=== PATIENT | male | born 1980 | race Caucasian/White ===

== ENCOUNTER 2018-02-09 17:20 | Inpatient (IN) | payer OTHER ==
[2018-02-09 23:11] VITALS: BMI 33.7
--- NOTE | 2018-02-10 00:57 | HP ---
COWS - Scale Resting Pulse: 0= OR 80 or Below Sweatin=Flushed/Facial Moisture Restless Observation: 3= Extraneous Movement Pupil Size: 0= Normal to Room Light Bone or Joint Aches: 0= None Runny Nose/ Eye Tearin= Runny Nose/Eyes GI Upset > 30mins: 0= None Tremor Observation: 2= Slight Tremor Visible Yawning Observation: 1= 1-2x During Session Anxiety or Irritability: 2=Irritable/Anxious Goose Flesh Skin: 3=Piloerection COWS Score: 15 CIWA Score - CIWA Score Nausea/Vomitin-No Nausea/No Vomiting Muscle Tremors: 3 Anxiety: 3 Agitation: 4-Moderately Restless Paroxysmal Sweats: No Perspiration Orientation: 0-Oriented Tacttile Disturbances: 2-Mild Itch/Numbness/Burn Auditory Disturbances: 0-None Visual Disturbances: 0-None Headache: 0-None Present CIWA-Ar Total Score: 12 Admission ROS [facility] - HPI Chief Complaint: c/o withdrawal sx's. seeking detox txment Allergies/Adverse Reactions: Allergies Allergy/AdvReac Type Severity Reaction Status Date / Time No Known Allergies Allergy Verified 02/10/18 00:28 History of Present Illness: 37 Y.O. MALE WITH POLY SUBSTANCE ABUSE HERE FOR DETOX FROM HEROIN. UTOX + MTD- CLIENT DENIES USE OR PROGRAM. UTOX ALSO+ BENZO REPORTS USING DAILY FOR THE PAST 2 WEEKS AVERAGING 8 MG DAILY. PREVIOUS TO THAT IT WAS ATLEAST 2X WEEK. REFERRED BY A FRIEND. DENIES ANY SIGNIFICANT CLEAN TIME. C/O WITHDRAWAL SX'S SEE CIWA/ COWS. DENIES SOB,C.P, SEIZURE D/O, DRUG OVERDOSE, PAST/PRESENT SI/HI PMHX: DENIES PSYCH: DENIES Exam Limitations: No Limitations - Ebola screening Have you traveled outside of the country in the last 21 days: No Have you had contact with anyone from an Ebola affected area: No Have you been sick,other than usual withdrawal symptoms: No Do you have a fever: No - Review of Systems Constitutional: Chills, Loss of Appetite, Malaise, Night Sweats, Changes in sleep EENT: reports: No Symptoms Reported Respiratory: reports: No Symptoms reported Cardiac: reports: No Symptoms Reported GI: reports: No Symptoms Reported : reports: No Symptoms Reported Musculoskeletal: reports: No Symptoms Reported Integumentary: reports: No Symptoms Reported Neuro: reports: No Symptoms reported Endocrine: reports: No Symptoms Reported Hematology: reports: No Symptoms Reported Psychiatric: reports: Anxious Other Systems: Reviewed and Negative Patient History - Patient Medical History Hx Anemia: No Hx Asthma: No Hx Chronic Obstructive Pulmonary Disease (COPD): No Hx Cancer: No Hx Cardiac Disorders: No Hx Congestive Heart Failure: No Hx Hypertension: No Hx Hypercholesterolemia: No Hx Pacemaker: No HX Cerebrovascular Accident: No Hx Seizures: No Hx Diabetes: No Hx Gastrointestinal Disorders: No Hx Liver Disease: No Hx Genitourinary Disorders: No Hx Sexually Transmitted Disorders: No Hx Renal Disease (ESRD): No Hx Thyroid Disease: No Hx Human Immunodeficiency Virus (HIV): No Hx Hepatitis C: No Hx Depression: No Hx Suicide Attempt: No Hx Bipolar Disorder: No Hx Schizophrenia: No Other Medical History: DENIES - Patient Surgical History Past Surgical History: No - PPD History Previous Implant?: Yes Documented Results: Negative w/o proof Implanted On Prior [facility] Admission?: No PPD to be Administered?: Yes - Smoking Cessation Smoking history: Current every day smoker Aproximately how many cigarettes per day: 20 Cigars Per Day: 0 Hx Chewing Tobacco Use: No Initiated information on smoking cessation: Yes 'Breaking Loose' booklet given: 02/10/18 - Substance & Tx. History Hx Alcohol Use: No Hx Substance Use: Yes Substance Use Type: Heroin, Opiates (OXY), Tranquilizers (XANAX) Hx Substance Use Treatment: No - Substances Abused Heroin Route: SNIFF Frequency: Daily Amount used: 20 BAGS Age of first use: 22 Date of Last Use: 02/10/18 Alprazolam (Xanax) Route: Oral Frequency: Daily Amount used: 4 STICKS Age of first use: 36 Date of Last Use: 02/09/18 Family Disease History - Family Disease History Family Disease History: Other: Grandparent (ALCOHOLIC) Admission Physical Exam [facility] - Vital Signs Vital Signs: Vital Signs - 24 hr 02/09/18 02/10/18 22:57 00:18 Temperature 97.3 F L 97.3 F L Pulse Rate 73 73 Respiratory 20 18 Rate Blood Pressure 142/79 142/79 - Physical General Appearance: Yes: Appropriately Dressed, Mild Distress, Tremorous (FELT) , Anxious, Other ([place]) HEENTM: Yes: EOMI, Normal ENT Inspection, Normocephalic, Normal Voice, RODRIGO, Pharynx Normal, Nasal Congestion Respiratory: Yes: Chest Non-Tender, Lungs Clear, Normal Breath Sounds, No Respiratory Distress, No Accessory Muscle Use Neck: Yes: No masses,lesions,Nodules, Supple, Trachea in good position Breast: Yes: Breast Exam Deferred Cardiology: Yes: Regular Rhythm, Regular Rate, S1, S2 Abdominal: Yes: Non Tender, Soft, Protuberent, Hernia Genitourinary: Yes: Other (NO C/O) Back: Yes: Normal Inspection Musculoskeletal: Yes: full range of Motion, Gait Steady Extremities: Yes: Normal Capillary Refill, Normal Range of Motion, Non-Tender, Tremors (FELT) Neurological: Yes: Fully Oriented, Alert, Motor Strength 5/5 Integumentary: Yes: Dry, Warm Lymphatic: Yes: Within Normal Limits - Diagnostic (1) Opioid dependence with withdrawal Current Visit: Yes Status: Acute (2) Sedative, hypnotic or anxiolytic dependence with withdrawal, uncomplicated Current Visit: Yes Status: Acute (3) Nicotine dependence Current Visit: Yes Status: Acute Qualifiers: Nicotine product type: cigarettes Substance use status: uncomplicated Qualified Code(s): F17.210 - Nicotine dependence, cigarettes, uncomplicated (4) Dry mucous membranes Current Visit: Yes Status: Acute (5) At risk for dehydration due to poor fluid intake Current Visit: Yes Status: Acute (6) Substance-induced sleep disorder Current Visit: Yes Status: Suspected Cleared for Admission [facility] - Detox or Rehab [facility] Level of Care: Medically Managed Detox Regimen/Protocol: Methadone/Valium Claeared for Rehab Admission: No [facility] Breath Alcohol Content Breath Alcohol Content: 0 Urine Drug Screen - Results Drug Screen Negative: No Urine Drug Screen Results: OPI-Opiates, BZO-Benzodiazepines, MTD-Methadone, OXY- Oxycodone
[2018-02-10] MEDS ORDERED: MAGNESIUM CITRATE 300 ML BOTTLE PO PRN (01:07)
[2018-02-10] MEDS ORDERED: MAG HYDROX/AL HYDROX/SIMETH 30 ML UNIT-DOSE CUP PO PRN (01:07)
[2018-02-10] MEDS ORDERED: METHADONE HCL 10 MG TABLET (FOR DETOX USE ONLY) PO ONE ×3 (01:07→23:00)
[2018-02-10] MEDS ORDERED: MENTHOL/PHENOL 1 EACH UD MM PRN (01:07)
[2018-02-10] MEDS ORDERED: diazePAM 5 MG TABLET PO PRN (01:07)
[2018-02-10] MEDS ORDERED: ACETAMINOPHEN 325 MG TABLET (FP) PO PRN (01:07)
[2018-02-10] MEDS ORDERED: NICOTINE POLACRILEX 2 MG GUM BUC PRN (01:07)
[2018-02-10] MEDS ORDERED: diazePAM 5 MG TABLET PO ONE (01:07)
[2018-02-10] MEDS ORDERED: MAGNESIUM HYDROX 2400MG/30ML ORAL SUSPENSION 30 ML CUP PO PRN (01:07)
[2018-02-10] MEDS ORDERED: guaiFENesin/D-METHORPHAN HB 10 ML UNIT-DOSE CUPS PO PRN (01:07)
[2018-02-10] MEDS ORDERED: LOPERAMIDE HCL 2 MG CAPSULE PO PRN (01:07)
[2018-02-10] MEDS ORDERED: P-EPHED 60MG/TRIPROLIDI 2.5MG TABLET PO PRN (01:07)
[2018-02-10] MEDS ORDERED: IBUPROFEN 400 MG TABLET (FP) PO PRN (01:07)
[2018-02-10] MEDS ORDERED: diazePAM 5 MG TABLET PO SCH (06:00)
[2018-02-10] MEDS ORDERED: PRENATAL VITAMINS W/ FOLIC ACID TABLET (FP) PO SCH (10:00)
[2018-02-10] MEDS ORDERED: NICOTINE 14 MG/24 HOURS TOPICAL PATCH TD SCH (10:00)
[2018-02-10 10:20] VITALS: BP 125/81; PULSE 69; TEMP 98.2
[2018-02-10 10:53] LABS: ALBUMIN 3.3 g/dl (3.4-5.0); ANION GAP 8 MMOL/L (8-16); BLOOD UREA NITROGEN 10 mg/dL (7-18); CALCIUM 8.7 mg/dL (8.5-10.1); CHLORIDE 103 mmol/L (98-107); CO2 30 mmol/L (21-32); GLUCOSE,RANDOM 82 mg/dL (74-106); POTASSIUM 3.9 mmol/L (3.5-5.1); SODIUM 141 mmol/L (136-145)
[2018-02-10 10:56] LABS: ALK PHOS 80 U/L (45-117); BILIRUBIN,TOTAL 0.6 mg/dL (0.2-1.0); CREATININE 0.8 mg/dL (0.7-1.3); SGOT/AST 43 U/L (15-37); SGPT/ALT 79 U/L (12-78)
[2018-02-10 11:46] LABS: HEMATOCRIT 36.2 % (35.4-49); HEMOGLOBIN 11.7 GM/dL (11.7-16.9); MCH 29.7 pg (25.7-33.7); MCHC 32.4 g/dl (32.0-35.9); MEAN CELL VOLUME 91.6 fl (80-96); MEAN PLT VOLUME 9.2 fl (7.5-11.1); PLATELET COUNT 324 K/MM3 (134-434); RBC 3.95 M/mm3 (4.00-5.60); RDW 13.5 % (11.9-15.9); WHITE BLOOD COUNT 10.8 K/mm3 (4.0-10.0)
--- NOTE | 2018-02-10 12:31 | DS ---
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 PT REPORTS HE HAS NO PMD AND DOES NOT NEED MEDICAL MANAGEMENT-"I HAVE NO MEDICAL PROBLEM". BUT SAYS HE STAYS IN [place], [place]. ENCOURAGED PT TO FOLLOW UP WITH A PCP NEAR HIM NEEDED. Pertinent Past History: PLEASE SEE DX BELOW - Physical Exam Results Vital Signs: Vital Signs Temperature 98.2 F 02/10/18 10:18 Pulse Rate 69 02/10/18 10:18 Respiratory Rate 18 02/10/18 10:18 Blood Pressure 125/81 02/10/18 10:18 O2 Sat by Pulse Oximetry (%) Pertinent Admission Physical Exam Findings: WITHDRAWAL SX Laboratory Tests 02/10/18 02/10/18 06:00 06:00 WBC 10.8 H RBC 3.95 L Hgb 11.7 Hct 36.2 MCV 91.6 MCH 29.7 MCHC 32.4 RDW 13.5 Plt Count 324 MPV 9.2 Sodium 141 Potassium 3.9 Chloride 103 Carbon Dioxide 30 Anion Gap 8 BUN 10 Creatinine 0.8 Creat Clearance w eGFR > 60 Random Glucose 82 Calcium 8.7 Total Bilirubin 0.6 AST 43 H ALT 79 H Alkaline Phosphatase 80 Total Protein 7.0 Albumin 3.3 L - Treatment Hospital Course: Discharged Condition Good - Medication Discharge Medications: Ambulatory Orders NK [No Known Home Medication] 02/10/18 - Diagnosis (1) Nicotine dependence Current Visit: Yes Status: Acute Qualifiers: Nicotine product type: cigarettes Substance use status: in withdrawal Qualified Code(s): F17.213 - Nicotine dependence, cigarettes, with withdrawal (2) Opioid dependence with withdrawal Current Visit: Yes Status: Acute (3) Sedative, hypnotic or anxiolytic dependence with withdrawal, uncomplicated Current Visit: Yes Status: Acute - AMA Did Patient Leave Against Medical Advice: Yes (AMA)
--- NOTE | 2018-02-10 12:50 | PN ---
[facility] Progress Note Note: Psychiatric nurse pracitioner note: Psychiatric consult ordered for patient. Pt unable to be seen due to leaving AMA.
--- NOTE | 2018-02-10 13:47 | EKG ---
Test Reason : Blood Pressure : / mmHG Vent. Rate : 062 BPM Atrial Rate : 062 BPM P-R Int : 168 ms QRS Dur : 092 ms QT Int : 436 ms P-R-T Axes : 061 059 018 degrees QTc Int : 442 ms NORMAL SINUS RHYTHM WITH SINUS ARRHYTHMIA NORMAL ECG NO PREVIOUS ECGS AVAILABLE Confirmed by JOSE CRUZ, BIANCA ([id number]) on 02/10/2018 1:47:33 PM Referred By: Confirmed By:BIANCA GARCIA MD
[2018-02-10] MEDS ORDERED: THIAMINE HCL 100 MG TABLET (FP) PO SCH (22:00)
[2018-02-10] MEDS ORDERED: MELATONIN 5 MG TABLETS PO PRN (22:00)
[2018-02-11] MEDS ORDERED: METHADONE HCL 10 MG TABLET (FOR DETOX USE ONLY) PO SCH (10:00)
[2018-02-12] MEDS ORDERED: METHADONE HCL 5 MG TABLET (FOR DETOX USE ONLY) PO SCH (10:00)
[2018-02-12] MEDS ORDERED: diazePAM 5 MG TABLET PO SCH (10:00)
[2018-02-14] MEDS ORDERED: diazePAM 5 MG TABLET PO SCH (10:00)
[2018-02-14] MEDS ORDERED: METHADONE HCL 10 MG TABLET (FOR DETOX USE ONLY) PO SCH (10:00)
[2018-02-15] MEDS ORDERED: METHADONE HCL 5 MG TABLET (FOR DETOX USE ONLY) PO SCH (06:00)
== END 2018-02-10 10:33 | disposition left against medical advice (07) | DRG 770 ==
LOC: YASAS 17:20 → Y3N 23:12
PROC: HZ2ZZZZ Detoxification Services for Substance Abuse Treatment (ICD-10-PCS; principal; 2018-02-09)
DX: F11.23 Opioid dependence with withdrawal (principal); F13.230 Sedative, hypnotic or anxiolytic dependence with withdrawal, uncomplicated; F17.213 Nicotine dependence, cigarettes, with withdrawal; F19.282 Other psychoactive substance dependence with psychoactive substance-induced sleep disorder; R68.2 Dry mouth, unspecified; Z91.89 Other specified personal risk factors, not elsewhere classified
CPT/HCPCS: 36415; 80053; 85027; 86593; 93005; 93010